=== PATIENT | female | born 1995 | race Two or more races ===

== ENCOUNTER 2023-04-22 03:09 | Emergency (ER) | payer OTHER ==
[~2023-04-22] VITALS: Ht 165.1 cm; Wt 78.9 kg
[2023-04-22] MEDS ORDERED: PRENATAL CAPLE1 EAC1 PO (03:18)
== END 2023-04-22 06:38 ==
LOC: ER 03:09
DX: O20.8 Other hemorrhage in early pregnancy (principal); Z3A.15 15 weeks gestation of pregnancy; Z91.013 Allergy to seafood

== ENCOUNTER 2023-05-06 15:23 | Outpatient (CLI) | payer OTHER ==
[~2023-05-06 15:23] MED LIST: PRENATAL CAPLE1 EAC1 PO
== END 2023-05-06 16:20 | disposition home or self-care (01) ==
LOC: PRENATAL 15:23
PROVIDERS: ATTEND Obstetrics & Gynecology Maternal & Fetal Medicine
DX: O26.849 Uterine size-date discrepancy, unspecified trimester (principal); O26.859 Spotting complicating pregnancy, unspecified trimester; Z3A.16 16 weeks gestation of pregnancy

== ENCOUNTER 2023-06-02 10:04 | Outpatient (CLI) | payer OTHER | END 2023-06-02 17:19 | disposition home or self-care (01) | LOC: PRENATAL 10:04 | PROVIDERS: ATTEND Obstetrics & Gynecology Maternal & Fetal Medicine | DX: O35.3XX0 Maternal care for (suspected) damage to fetus from viral disease in mother, not applicable or unspecified (principal); O44.00 Complete placenta previa NOS or without hemorrhage, unspecified trimester; Z3A.20 20 weeks gestation of pregnancy ==

== ENCOUNTER → 2023-08-25 08:39 | Outpatient (CLI) | payer OTHER | END | disposition home or self-care (01) | LOC: PRENATAL 08:39 | PROVIDERS: ATTEND Obstetrics & Gynecology Maternal & Fetal Medicine | DX: O26.849 Uterine size-date discrepancy, unspecified trimester (principal); O36.8199 Decreased fetal movements, unspecified trimester, other fetus; Z3A.32 32 weeks gestation of pregnancy ==

== ENCOUNTER → 2024-08-01 08:14 | Outpatient (CLI) | payer OTHER | END | disposition home or self-care (01) | LOC: PRENATAL 08:14 | PROVIDERS: ATTEND Obstetrics & Gynecology Maternal & Fetal Medicine | DX: O26.849 Uterine size-date discrepancy, unspecified trimester (principal); O36.1999 Maternal care for other isoimmunization, unspecified trimester, other fetus; Z36.0 Encounter for antenatal screening for chromosomal anomalies; Z3A.15 15 weeks gestation of pregnancy ==

== ENCOUNTER 2024-08-29 10:58 | Outpatient (CLI) | payer OTHER | END 2024-08-29 10:59 | disposition home or self-care (01) | LOC: PRENATAL 10:58 | PROVIDERS: ATTEND Obstetrics & Gynecology Maternal & Fetal Medicine | DX: O44.00 Complete placenta previa NOS or without hemorrhage, unspecified trimester (principal); O36.1999 Maternal care for other isoimmunization, unspecified trimester, other fetus; Z3A.19 19 weeks gestation of pregnancy ==

== ENCOUNTER 2024-10-25 10:54 | Outpatient (CLI) | payer OTHER | END 2024-10-25 10:55 | disposition home or self-care (01) | LOC: PRENATAL 10:54 | PROVIDERS: ATTEND Obstetrics & Gynecology Maternal & Fetal Medicine | DX: O26.849 Uterine size-date discrepancy, unspecified trimester (principal); O44.00 Complete placenta previa NOS or without hemorrhage, unspecified trimester; O36.1999 Maternal care for other isoimmunization, unspecified trimester, other fetus; Z3A.27 27 weeks gestation of pregnancy ==

== ENCOUNTER 2024-12-03 20:49 | Outpatient (CLI) | payer OTHER ==
[2024-12-03 21:01] VITALS: BP 111/71
[2024-12-03 21:10] VITALS: BP 111/71
[2024-12-03] MEDS ORDERED: RINGERS SOLUTION,LACTATED 1,000 ML IV SCH (21:30)
[2024-12-03 22:06] LABS: PH,URINE 6.5 (5.0-8.0); URINE APPEARANCE Clear; URINE BILIRRUBIN Negative (NEGATIVE); URINE BLOOD Negative; URINE COLOR Yellow; URINE GLUCOSE Negative (NEGATIVE); URINE KETONE Trace (NEGATIVE); URINE LEUKOCYTE Negative; URINE NITRATE Negative; URINE PROTEIN 30 (NEGATIVE)
[2024-12-03 22:07] LABS: HEMATOCRIT 30.7 % (36.0-45.00); HEMOGLOBIN 10.4 g/dL (12.0-15.00); MEAN CELL VOLUME 76.4 fL (80.00-100.00); MEAN CORPUSCULAR HEMOGLOBIN 25.9 pg (27.00-32.0); MEAN CORPUSCULAR HGB CONC 33.9 g/dl (32.0-36.0); PLATELET COUNT 230 K/uL (150-450); RED BLOOD COUNT 4.03 M/uL (4.00-6.00); RED CELL DISTRIBUTION WIDTH 14.7 % (11.5-14.5)
[2024-12-03 22:10] LABS: URINE BACTERIA 189.7 uL (0.0-1933); URINE EPITHELIAL CELLS 21.2 uL (0.0-38.8); URINE RBC 3.5 uL (0.0-20.8); URINE WBC 10.9 uL (0.0-23.2)
[2024-12-03 22:17] LABS: URINE CAST 0.29 uL (0.0-1.40)
[2024-12-03 23:10] VITALS: BP 106/69
[2024-12-03] MEDS ORDERED: MAGNESIUM SULFATE IN WATER 0.04 GM/ML IV.SOLN IV ONE (23:23)
[2024-12-03] MEDS ORDERED: MAGNESIUM SULFATE IN WATER 4 GM/100 ML PIGGYBACK IV ONE (23:30)
[2024-12-03] MEDS ORDERED: MAGNESIUM SULFATE IN WATER 500 ML IV SCH (23:30)
[2024-12-04 04:00] VITALS: BP 110/67
[2024-12-04] MEDS ORDERED: NIFEDIPINE 30 MG TAB.SA.OSM PO SCH ×2 (05:58→09:00)
[2024-12-04] MEDS ORDERED: ONDANSETRON HCL 2 MG/ML VIAL IV ONE (06:00)
[2024-12-04 06:11] VITALS: BP 121/75; O2SAT 98
[2024-12-04 11:07] VITALS: BP 111/68; O2SAT 98
[2024-12-04 15:12] VITALS: BP 106/69
[2024-12-04] MEDS ORDERED: ACETAMINOPHEN 500 MG GEL..CAP PO ONE ×2 (17:52→18:00)
[2024-12-04 19:21] VITALS: BP 110/70
[2024-12-04 20:35] VITALS: BP 110/70
== END 2024-12-04 20:35 | disposition home or self-care (01) ==
LOC: OBS/DEL 20:49
PROVIDERS: Specialist; ATTEND Student in an Organized Health Care Education/Training Program
DX: O26.893 Other specified pregnancy related conditions, third trimester (principal); R10.2 Pelvic and perineal pain; O26.849 Uterine size-date discrepancy, unspecified trimester; O36.8199 Decreased fetal movements, unspecified trimester, other fetus; O60.00 Preterm labor without delivery, unspecified trimester; Z3A.33 33 weeks gestation of pregnancy

== ENCOUNTER 2025-01-09 14:23 | Inpatient (IN) | payer OTHER ==
[~2025-01-09] VITALS: Ht 165.1 cm; Wt 87.1 kg
[2025-01-09 14:58] LABS: HEMATOCRIT 30.4 % (36.0-45.00); HEMOGLOBIN 10.3 g/dL (12.0-15.00); MEAN CELL VOLUME 73.4 fL (80.00-100.00); MEAN CORPUSCULAR HEMOGLOBIN 24.8 pg (27.00-32.0); MEAN CORPUSCULAR HGB CONC 33.8 g/dl (32.0-36.0); PLATELET COUNT 233 K/uL (150-450); RED BLOOD COUNT 4.14 M/uL (4.00-6.00); RED CELL DISTRIBUTION WIDTH 15.6 % (11.5-14.5)
[2025-01-09 14:58] LABS: PH,URINE 6.5 (5.0-8.0); URINE APPEARANCE Clear; URINE BILIRRUBIN Negative (NEGATIVE); URINE BLOOD Negative; URINE COLOR Yellow; URINE GLUCOSE Negative (NEGATIVE); URINE LEUKOCYTE Negative; URINE NITRATE Negative; URINE PROTEIN Trace (NEGATIVE)
[2025-01-09 15:01] LABS: URINE BACTERIA 13.4 uL (0.0-1933); URINE EPITHELIAL CELLS 4.5 uL (0.0-38.8); URINE WBC 2.3 uL (0.0-23.2)
[2025-01-09 15:12] LABS: URINE CAST 0.14 uL (0.0-1.40); URINE KETONE 40 (NEGATIVE)
[2025-01-09 15:17] LABS: INR < 0.93; PARTIAL THROMBOPLASTIN TIME 23.5 SECONDS (22.0-34.0); PROTHROMBIN TIME 9.9 SECONDS (9.0-11.5)
[2025-01-09 15:46] LABS: ALBUMIN 2.7 gm/dL (3.4-5.0); BILIRUBIN TOTAL 0.69 mg/dL (0.3-1.2); CALCIUM 8.8 mg/dL (8.5-10.1); CREATININE SERUM 0.7 mg/dL (0.55-1.02); GFR 99.64; GLOBULINA 3.5 G/DL (2.4-3.5); POTASSIUM 3.74 mEq/L (3.5-5.1); TOTAL PROTEIN 6.2 gm/dL (6.4-8.2)
[2025-01-14] VITALS (10 sets, daily range): BP systolic 107–141; BP diastolic 64–80; O2SAT 98
[2025-01-14] MEDS ORDERED: 0.9 % SODIUM CHLORIDE 1,000 ML IV SCH (05:45)
[2025-01-14] MEDS ORDERED: AMPICILLIN SODIUM 2,000 MG VIAL IV NR (05:45)
[2025-01-14] MEDS ORDERED: RINGERS SOLUTION,LACTATED 1,000 ML IV SCH (07:00)
[2025-01-14] MEDS ORDERED: OXYTOCIN 20 UNITS/500ML RL PIGGYBAG IV ONE (08:50)
[2025-01-14] MEDS ORDERED: AMPICILLIN SODIUM 1,000 MG VIAL IV SCH (09:00)
[2025-01-14] MEDS ORDERED: OXYTOCIN 500 ML IV SCH (09:15)
[2025-01-14] MEDS ORDERED: ERYTHROMYCIN BASE OPHT 1GM EACH TUBE OP ONE ×2 (10:02→13:00)
[2025-01-14] MEDS ORDERED: OXYTOCIN 20 UNITS/1000ML RL PIGGYBAG IV ONE (10:03)
[2025-01-14] MEDS ORDERED: LIDOCAINE HCL 1% 10ML VIAL ONE (10:03)
[2025-01-14] MEDS ORDERED: CHLORHEXIDINE GLUCONATE 120 ML BOTTLE TOP ONE (10:03)
[2025-01-14] MEDS ORDERED: OXYTOCIN 10 UNITS/ML VIAL ONE (11:56)
[2025-01-14] MEDS ORDERED: OXYTOCIN 10 UNITS/ML VIAL IM STA (12:35)
[2025-01-14] MEDS ORDERED: FF) RHO(D) IMMUNE GLOBULIN (POM) IM SCH (12:45)
[2025-01-14] MEDS ORDERED: CHLORHEXIDINE GLUCONATE 120 ML BOTTLE TOP SCH (12:45)
[2025-01-14] MEDS ORDERED: IBUprofen 400 MG TABLET PO PRN (12:45)
[2025-01-14] MEDS ORDERED: OXYTOCIN 1,000 ML IV SCH (12:45)
[2025-01-14] MEDS ORDERED: ACETAMINOPHEN 325 MG TABLET PO SCH (14:00)
[2025-01-15 06:50] LABS: HEMATOCRIT 25.1 % (36.0-45.00); MEAN CELL VOLUME 72.6 fL (80.00-100.00); MEAN CORPUSCULAR HGB CONC 33.1 g/dl (32.0-36.0); PLATELET COUNT 202 K/uL (150-450); RED BLOOD COUNT 3.46 M/uL (4.00-6.00); RED CELL DISTRIBUTION WIDTH 16.4 % (11.5-14.5)
[2025-01-15 07:06] LABS: HEMOGLOBIN 8.3 g/dL (12.0-15.00); MEAN CORPUSCULAR HEMOGLOBIN 23.9 pg (27.00-32.0)
[2025-01-15] MEDS ORDERED: PNV,CALCIUM 72/IRON/FOLIC ACID 1 TAB TABLET PO SCH (09:00)
[2025-01-15 12:26] VITALS: BP 129/80
[2025-01-15 16:00] VITALS: BP 122/68
[2025-01-15] MEDS ORDERED: IRON FUM,PS/FOLIC/BCOMP,C NO.9 1 CAP CAPSULE PO SCH (17:37)
[2025-01-15] MEDS ORDERED: FF) RHO(D) IMMUNE GLOBULIN (POM) IM SCH (18:30)
[2025-01-16 00:11] VITALS: BP 128/78
[2025-01-16 08:00] VITALS: BP 126/80
[2025-01-16 16:00] VITALS: BP 131/80
== END 2025-01-16 18:26 | disposition home or self-care (01) | DRG 806 ==
LOC: OB/GYN 01-14 05:35 → LDR 01-14 05:35 → OB/GYN 01-14 12:20 → LDR 01-15 14:45 → OB/GYN 01-16 18:26
PROVIDERS: Obstetrics & Gynecology; ADMIT Student in an Organized Health Care Education/Training Program; ATTEND Student in an Organized Health Care Education/Training Program
PROC: 10E0XZZ Delivery of Products of Conception, External Approach (ICD-10-PCS; principal; 2025-01-14)
PROC: 0UQMXZZ Repair Vulva, External Approach (ICD-10-PCS; 2025-01-14)
PROC: 3E033VJ Introduction of Other Hormone into Peripheral Vein, Percutaneous Approach (ICD-10-PCS; 2025-01-14)
PROC: 4A1HXCZ Monitoring of Products of Conception, Cardiac Rate, External Approach (ICD-10-PCS; 2025-01-14)
DX: O71.82 Other specified trauma to perineum and vulva (principal); O36.0930 Maternal care for other rhesus isoimmunization, third trimester, not applicable or unspecified; Z37.0 Single live birth; O99.824 Streptococcus B carrier state complicating childbirth; O26.893 Other specified pregnancy related conditions, third trimester; Z67.91 Unspecified blood type, Rh negative; Z3A.39 39 weeks gestation of pregnancy